=== PATIENT | female | born 1960 | race Caucasian/White ===

== ENCOUNTER → 2018-02-20 08:52 | Outpatient (CLI) | payer BC, SELFPAY ==
--- NOTE | 2018-02-20 08:59 | FL_ITS ---
FL upper GI w air HISTORY: ITS.REASON: ABDOMINAL PAIN ORDERING PHYSICIAN: Nayeli Duggan PATIENT AGE: 58 years COMPARISON: None FINDINGS: There is a small sliding hiatal hernia which became much more apparent with Valsalva. No ulcer or mass is evident.. FLUOROSCOPY TIME : 1 minute and 55 seconds. IMPRESSION: 1. Sliding hiatal hernia. 2. Otherwise negative upper GI
== END ==
PROVIDERS: Family Provider Nurse Practitioner; PCP Nurse Practitioner; Visit Provider Nurse Practitioner
DX: R10.84 Generalized abdominal pain (principal)
CPT/HCPCS: 74247

== ENCOUNTER → 2021-11-02 16:23 | Outpatient (CLI) | payer BC, SELFPAY ==
--- NOTE | 2021-11-02 16:33 | XR_ITS ---
PROCEDURE: XR KUB CLINICAL INDICATION: LT FLANK PAIN COMPARISON: No exams were available for comparison FINDINGS: There is mild lumbar scoliosis convex left. Bowel gas pattern is unremarkable. No evidence of intestinal obstruction. Multiple pelvic calcifications are present consistent with phleboliths. No obvious renal calculi. Osteitis pubis noted. Mild degenerative changes of the hips. IMPRESSION: No acute findings. Dictated by: Maurice Coffey MD 11/04/2021 11:16 Maurice Coffey MD in [place] 11/04/2021 11:16
[2021-11-02 18:59] LABS: Alanine Aminotransferase 22 U/L (12-78); Albumin Level 4.2 g/dl (3.5-5.0); Albumin/Globulin Ratio 1.6 (1.1-1.8); Alkaline Phosphatase 89 U/L (38-126); Anion Gap 10.9 mEq/L (5-15); Aspartate Amino Transferase 31 U/L (14-36); Blood Urea Nitrogen 11 mg/dl (7-17); Calcium 9.3 mg/dl (8.4-10.2); Carbon Dioxide 30 mmol/L (22.0-30.0); Chloride 100 mmol/L (98-107); Estimated Glomerular Filt Rate 85 ml/min (>60); GFR (African American) 102 ML/MIN (>60); Globulin 2.7 g/dL (1.3-3.2); Glucose 91 mg/dl (74-100); Potassium 3.9 mmoL/L (3.5-5.1); Sodium 137 mmol/L (136-145); Total Protein,Serum 6.9 g/dl (6.3-8.2)
[2021-11-02 19:03] LABS: Bilirubin,Total 0.1 mg/dl (0.2-1.3)
[2021-11-02 21:03] LABS: Basophils # 0.1 K/mm3 (0-0.2); Basophils % 0.8 % (0.1-2.0); Eosinophils # 0.2 K/mm3 (0.0-0.4); Eosinophils % 3.6 % (0.1-12.0); Hematocrit 41.5 % (37.0-47.0); Hemoglobin 14.1 g/dL (12.2-16.2); Lymphocytes # 2.2 K/mm3 (0.7-4.5); Lymphocytes % 39.6 % (10-50); Mean Corpuscular HGB Conc 33.9 g/dL (31.8-35.4); Mean Corpuscular Hemoglobin 31.5 pg (27.0-31.2); Mean Corpuscular Volume 92.8 fl (81-99); Mean Platelet Volume 9.9 fl (7.4-10.4); Monocytes # 0.3 K/mm3 (0.1-1.0); Monocytes % 6.2 % (1.7-9.3); Neutrophils # 2.8 K/mm3 (1.8-7.8); Neutrophils % 49.8 % (37.0-80.0); Platelet Count 267 K/mm3 (142-424); Red Blood Count 4.47 M/mm3 (4.20-5.40); Red Cell Distribution Width 13.5 % (11.5-17.5); White Blood Count 5.5 K/mm3 (4.8-10.8)
== END ==
PROVIDERS: Visit Provider Nurse Practitioner Family
DX: R10.9 Unspecified abdominal pain (principal); N30.00 Acute cystitis without hematuria
CPT/HCPCS: 36415; 74018; 80053; 85025

== ENCOUNTER 2023-04-17 09:07 | Emergency (ER) | payer MEDICARE, OTHER, SELFPAY ==
--- NOTE | 2023-04-17 09:10 | XR_ITS ---
FINAL REPORT CLINICAL HISTORY: fall COMPARISON: None FINDINGS: AP, lateral and oblique views of the right knee were obtained. There is no prior exam for comparison. There is no acute osseous abnormality of the right knee. There is mild degenerative joint disease identified. The soft tissues are normal. There is a probable small joint effusion. IMPRESSION: No acute osseous abnormality of the right knee. Small joint effusion. Reviewed, Interpreted and Dictated by Bailey Bender MD Transcribed by Corinne Maurice Authenticated and [facility]
[2023-04-17 09:20] VITALS: BP 140/91; PULSE 81; RESP 18; TEMP 36.7; O2SAT 98; BMI 33.3
--- NOTE | 2023-04-17 09:31 | EXP.UTC ---
Discharge Plan Disposition Patient Disposition: Home, Self-Care Condition: Good Prescriptions Prescriptions: No Action lisinopril-hydrochlorothiazide 20-12.5 mg tablet 1 tab PO DAILY Label Comments: TAKE 1 TABLET BY MOUTH ONCE DAILY metoprolol tartrate 50 mg tablet 50 mg PO DAILY Label Comments: TAKE 1 TABLET BY MOUTH TWICE DAILY omeprazole 20 mg capsule,delayed release(DR/EC) 20 mg PO DAILY Label Comments: TAKE 1 CAPSULE BY MOUTH TWICE DAILY Referrals Follow up/Referrals: Claudio Yang, [Staff Physician] - See instructions (Call office for appointment) Destiney Oliveira APRN [Primary Care Provider] - See instructions Activity Restrictions/Add. Instructions Additional Instructions/Restrictions: *weight bearing as tolerated *RICE, Rest the extremity, Ice 15-20 minutes 3-4 times daily, Compress- wear the daisy wrap as discussed as much as possible to help reduce swelling and pain, Elevate the extremity when at rest *Knee immobilizer is for support and help control swelling, use it except in the shower. Be sure that is not to tight but not to loose either *Elevate when resting? *Ibuprofen 600-800mg every 6-8 hours as needed for pain an inflammation. If need something more can take Tylenol in between doses of Ibuprofen to help Immediately follow up with your family doctor for new or worsening of symptoms, or no noticeable improvement over the next 3-5 days Clinical Impressions Clinical Impression: Knee sprain Qualifiers: Encounter type: initial encounter Involved ligament of knee: unspecified ligament Laterality: right Qualified Code(s): S83.91XA - Sprain of unspecified site of right knee, initial encounter Instructions Patient Instructions: How to Use Crutches, How To Perform RICE (Rest, Ice, Compress, Elevate), How to Use a Knee Immobilizer Discharge ED Provider: Molly Barrera [facility] General Stated complaint: Fall / RT knee pain Mode of Arrival: Ambulatory Source of Information: Patient Limitations: No Limitations Time Seen by Provider: 04/17/23 09:31 Description of Symptoms (Recalled from Triage Doc. by RN): PATIENT C/O RIGHT KNEE INJURY AFTER FALLING YESTERDAY HEENT Symptoms (Recalled from RN notes): No Resp Symptoms (Recalled from RN notes): No Skin Symptoms (Recalled from RN notes): No MS Symptoms (Recalled from RN notes): Yes Functional Status (Recalled from RN notes): WNL History of Present Illness Provider Complaint: Patient states that she was dancing in the grass yesterday and she slipped and fell States that she was having pain on the outside of her knee and when she tried to stand up her knee buckled and she fell again States that when she tries to stand and put weight on her right knee it feels like it is going to buckle under her so today when it wasnt any better she came in to get it checked Related Data Home Medications Medication Instructions Recorded Confirmed lisinopril 20 1 tab PO DAILY Hypertension 04/17/23 04/17/23 mg-hydrochlorothiazide 12.5 mg tablet metoprolol tartrate 50 mg tablet 50 mg PO DAILY Hypertension 04/17/23 04/17/23 omeprazole 20 mg capsule,delayed 20 mg PO DAILY Acid reflux 04/17/23 04/17/23 release Allergies Allergy/AdvReac Type Severity Reaction Status Date / Time No Known Allergies Allergy Verified 04/17/23 09:31 Worker's Comp Is this a Worker's Comp case?: No [facility] Disclaimer: The information contained in this section may have been updated after the patient was seen, as this information can be updated by other users. Medical History (Updated 04/17/23 @ 10:38 by Molly Barrera APRN) History of anemia Hypertension Urinary tract infection Surgical History (Updated 04/17/23 @ 09:35 by Olga Bustamante RN) History of cardiac cath History of cholecystectomy Social History Smoking Status: Unknown if ever smoked alcohol intake: never current occupational status: unemployed Travel i
[2023-04-17 10:45] VITALS: BP 140/91; PULSE 81; RESP 18; TEMP 36.7; O2SAT 98
== END 2023-04-17 10:48 | disposition home or self-care (01) ==
PROVIDERS: Emergency Provider Nurse Practitioner; PCP Nurse Practitioner Family
DX: S83.91XA Sprain of unspecified site of right knee, initial encounter (principal); W01.0XXA Fall on same level from slipping, tripping and stumbling without subsequent striking against object, initial encounter; I10 Essential (primary) hypertension
CPT/HCPCS: 73562; 99204; 99212; G0463

== ENCOUNTER 2023-04-21 12:37 | Outpatient (RCR) | payer MEDICARE, OTHER, SELFPAY | END 2023-04-21 13:30 | disposition home or self-care (01) | LOC: PT 12:37 | PROVIDERS: Visit Provider Orthopaedic Surgery | DX: M25.561 Pain in right knee (principal) | CPT/HCPCS: 97760 ==

== ENCOUNTER → 2023-05-04 07:52 | Outpatient (CLI) | payer MEDICARE, OTHER, SELFPAY ==
--- NOTE | 2023-05-04 07:52 | MR_ITS ---
FINAL REPORT CLINICAL HISTORY: Right Knee pain and swelling COMPARISON: None FINDINGS: Multi planar MR imaging was performed of the right knee. The anterior cruciate ligament is completely disrupted. The posterior cruciate ligament is intact. The quadriceps and patellar tendons are intact. There is a linear defect of the posterior horn of the medial meniscus and a linear defect of the anterior horn of the lateral meniscus. Findings are consistent with meniscal tears. The medial and lateral collateral ligaments appear intact. The medial and lateral retinacula appear intact. There is marrow edema in the posterior aspect of the medial and lateral tibial plateaus. A small joint effusion is present. IMPRESSION: Complete disruption of the anterior cruciate ligament. Tears of the posterior horn of the medial meniscus and anterior horn of the lateral meniscus. Marrow edema posterior tibial plateaus. Reviewed, Interpreted and Dictated by Glenn Gallagher MD Transcribed by Sheridan Barnhart Authenticated and [facility][1]
== END ==
PROVIDERS: PCP Nurse Practitioner Family; Visit Provider Orthopaedic Surgery
DX: M25.561 Pain in right knee; S83.91XA Sprain of unspecified site of right knee, initial encounter
CPT/HCPCS: 73721

== ENCOUNTER 2023-07-12 08:00 | Outpatient (RCR) | payer MEDICARE, OTHER, SELFPAY ==
--- NOTE | 2023-05-25 09:15 | HMH.PTOPEV ---
PT Outpatient Evaluation Rehab PT Outpatient Evaluation Start: 05/25/23 08:21 Freq: Status: Active Protocol: Document 05/25/23 08:22 BRITTNEY (Rec: 05/25/23 09:10 BRITTNEY [id number]) E-signed By David Carpenter, PT Outpatient Therapy Subjective History Subjective History Pt reports injury to right knee on 04/16/23 caused by falling. Pt reports imagaing studies of right knee have revealed OA, medial mensicus and ACL tears. Pt reports minimal and intermittent right knee pain, as well as episodes of instability. Pt reports right did in fact have a h/o pain/discomfort prior to injury. Chief Complaint Pain,Stiff,Gives out/Unstable, Weakness Symptom Type Ache,Dull Symptoms Relieved By Rest/Positioning,Ice,OTC Meds Symptoms Aggravated By Standing,Physical Activity, Walking Prior Functional Limitations Housework,Stairs Current Functional Limitations Housework,Standing,Squatting, Stairs Symptom Description Constant but Variable Level of pain today (0-10) 3 Pain scale - at its best (0-10) 3 Pain scale - at its worst (0-10) 6 Hip/Knee Eval Gait Observation General Gait Pattern Observation Antalgic Gait Palpation Tenderness right Knee Palpation Finding Tenderness Knee Palpation Overall Comment 1-2/4 medial jt line, lateral jt line MMT left Hip Flexion Strength Grade 5 Normal Hip Abduction Strength Grade 4 Good Hip Adduction Strength Grade 4 Good Hip Extension Strength Grade 4 Good Hip External Rotation Strength Grade 5 Normal Hip Internal Rotation Strength Grade 5 Normal Knee Extension Strength Grade 5 Normal Knee Flexion Strength Grade 5 Normal right Hip Flexion Strength Grade 4- Good- Hip Abduction Strength Grade 3+ Fair+ Hip Adduction Strength Grade 4- Good- Hip Extension Strength Grade 4- Good- Hip External Rotation Strength Grade 4 Good Hip Internal Rotation Strength Grade 4 Good Knee Extension Strength Grade 4- Good- Knee Flexion Strength Grade 4- Good- ROM left Knee Flexion Active Range of Motion ( 0-130 degrees) right Knee Flexion Active Range of Motion ( 0-113 degrees) Knee ROM Limitations Pain Effusion joint effusion knee exam standard right Mid - Patellar Circumerential Measure (
--- NOTE | 2023-06-23 08:24 | HMH.RHREAS ---
Rehab Reassessment Rehab OP Re-assessment Start: 05/25/23 08:21 Freq: Status: Active Protocol: Document 06/23/23 08:20 BRITTNEY (Rec: 06/23/23 08:24 BRITTNEY [id number]) E-signed By David Carpenter, PT Rehab Re-assessment Subjective Subjective Pt reports significant improvement in right knee pain , strength, and function since I eval. 'It really feels close to normal now.' Pt reports 0-2/10 right knee pain on VAS Objective Objective Notes AROM: R KNEE 0-131 MMT: R KNEE EXT 5/5, R KNEE FLX 5/5, R HIP FLX 5/5, R HIP ABD,ADD,EXT 4-4+/5 TTP: R KNEE MEDIAL JT LINE 0-1 /4, LATERAL JT LINE 0/4 GAIT: WFL ON LEVEL TERRAIN Assessment Progress Assessment Progressing as Expected Assessment Notes SIGNIFICANT IMPROVEMENT IN RIGHT KNEE AROM, STRENGTH, TTP , AND GAIT Patient goals met STG'S 05/19 LTG'S 07/24 Goals Not Met LTG'S 12/24 Plan Plan Pt to continue w/skilled P.T. to make further improvements in gait on unlevel terrain, strength, ROM, and TTP to allow for optimal function Frequency of Therapy 1-2x/wk Duration of therapy 2-4wks Time and Billing Re-Eval Time 11 Re-Eval Billing Units 1 PHYSICIAN CERTIFICATION: I certify the specified therapy services for Tomeka Culp are required, authorized, and reviewed every 30 days.
== END 2023-07-12 08:05 | disposition home or self-care (01) ==
LOC: PT 08:00
PROVIDERS: PCP Nurse Practitioner Family; Visit Provider Orthopaedic Surgery
DX: M17.11 Unilateral primary osteoarthritis, right knee (principal); S83.241A Other tear of medial meniscus, current injury, right knee, initial encounter; S83.511A Sprain of anterior cruciate ligament of right knee, initial encounter
CPT/HCPCS: 97010; 97014; 97110; 97140; 97163; 97164; 97530; G0283

== ENCOUNTER 2024-02-01 08:49 | Outpatient (CLI) | payer MEDICARE, OTHER, SELFPAY ==
--- NOTE | 2024-02-01 09:12 | CT_ITS ---
FINAL REPORT TECHNIQUE: Postcontrast axial images through the abdomen and pelvis were performed. This study was performed with techniques to keep radiation doses as low as reasonably achievable, (ALARA). Individualized dose reduction techniques using automated exposure control or adjustment of mA and/or kV according to the patient's size were employed. CLINICAL HISTORY: ABD PAIN FINDINGS: Abdomen: There is mild bibasilar atelectasis. Moderate hiatal hernia is identified. The liver is normal in size and attenuation. Patient is status post cholecystectomy. There is no biliary ductal dilatation. The spleen is unremarkable. The adrenals are normal. The pancreas is unremarkable. The kidneys enhance appropriately. The aorta is normal in caliber. No free fluid or adenopathy is identified. No findings for mechanical bowel obstruction are identified. Pelvis: The appendix is normal. There is a small umbilical hernia containing fat. The urinary bladder is unremarkable. No free fluid, free air, abscess or adenopathy is identified. Osseous structures demonstrate moderate degenerative change of the lumbar spine. IMPRESSION: Small umbilical hernia containing fat. Moderate hiatal hernia. Reviewed, Interpreted and Dictated by Moe Colby III, MD Transcribed by Liana Ding Authenticated and [facility]
[2024-02-01 09:22] LABS: Blood Urea Nitrogen 18 mg/dl (7-17); Estimated Glomerular Filt Rate 72 ml/min (>60); GFR (African American) 87 ML/MIN (>60)
[2024-02-01] MEDS: SODIUM CHLORIDE 0.9% 10ML SYR (RAD ONLY) 10 ML IV (09:57)
[2024-02-01] MEDS: IOPAMIDOL-370 (76%);100ML BOTTLE 75 ML IV (09:57)
== END 2024-02-01 23:59 ==
LOC: RAD 08:50
PROVIDERS: PCP Nurse Practitioner; Visit Provider Nurse Practitioner
DX: R10.9 Unspecified abdominal pain (principal)
CPT/HCPCS: 36415; 74177; 82565; 84520; Q9967